=== PATIENT | female | born 1965 ===

== ENCOUNTER 2025-10-21 14:52 | Outpatient (CLI) | payer BC, SELFPAY ==
--- NOTE | ~2025-10-21 | XR_ITS ---
XR shoulder RT min 2V 10/21/2025 15:17 INDICATION: Right shoulder pain PROCEDURE: 4 views right shoulder COMPARISON: No prior studies for comparison. FINDINGS: Fracture, dislocation or subluxation is not identified. The soft tissues appear within normal limits. No foreign bodies are identified. IMPRESSION: 1: NO ACUTE BONE OR JOINT ABNORMALITY IDENTIFIED. Reviewed, dictated and finalized at location O. TYPE MACHINIST
== END 2025-10-21 14:53 | disposition home or self-care (01) ==
DX: M25.511 Pain in right shoulder (principal)
CPT/HCPCS: 73030